=== PATIENT | female | born 1970 | race Caucasian/White ===

== ENCOUNTER 2022-07-21 11:32 | Emergency (ER) | payer BC ==
[2022-07-21] MEDS ORDERED: IBUPROFEN 400 MG TAB ONE (12:05)
--- NOTE | 2022-07-21 13:57 | EDPHYS ---
Physician Documentation [facility] Name: Leanna Delacruz Age: 51 yrs Sex: Female : 1970 Arrival Date: 07/21/2022 Time: 11:36 Bed 11 Private MD: ED Physician Kurtis Sanchez HPI: 07/21 11:50 This 51 yrs old Female presents to ER via Ambulatory with complaints of Fever, Cough, jmm Body Aches. 11:50 Onset: The symptoms/episode began/occurred gradually, 2 day(s) ago. Modifying factors: jmm there are no obvious modifying factors. Associated signs and symptoms: Pertinent positives: chills, cough, sore throat. It is unknown whether or not the patient has had similar symptoms in the past. This is a 51 year old female with a history of htn that presents to the ED with complaints of sore throat, body aches, cough, diarrhea beginning approx 2 days ago. Denies infectious exposure. Denies vomiting. . 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 - Social history:: Smoking status: Reported history of juuling and/or vaping. ROS: 11:50 Constitutional: Positive for body aches, fatigue. jmm 11:50 ENT: Positive for sore throat. 11:50 Respiratory: Positive for cough. 11:50 All other systems are negative. Exam: 11:50 Constitutional: This is a well developed, well nourished patient who is awake, alert, jmm and in no acute distress. Head/Face: atraumatic. Eyes: EOMI, no conjunctival erythema appreciated 11:50 Neck: Trachea midline, Supple Chest/axilla: Normal chest wall appearance and motion. Cardiovascular: Regular rate and rhythm. No edema appreciated Respiratory: Normal respirations, no respiratory distress appreciated Abdomen/GI: Non distended Back: Normal ROM Skin: General appearance color normal MS/ Extremity: Moves all extremities, no obvious deformities appreciated, no edema noted to the lower extremities Neuro: Awake and alert Psych: Behavior is normal, Mood is normal, Patient is cooperative and pleasant 11:50 ENT: Posterior pharynx: erythema, that is moderate. Vital Signs: 11:43 BP 122 / 84; Pulse 76; Resp 18; Temp 99.7; Pulse Ox 99% ; Weight 68.04 kg; Height 5 ft. kl 5 in. (165.10 cm); 13:30 Temp 98.2; kb3 14:29 BP 104 / 66; Pulse 81; Resp 20; Pulse Ox 99% ; Pain 3/10; kb3 11:43 Body Mass Index 24.96 (68.04 kg, 165.10 cm) kl MDM: 11:50 Patient medically screened. [facility] 13:55 Data reviewed: vital signs, nurses notes. Counseling: I had a detailed discussion with kenny the patient and/or guardian regarding: the historical points, exam findings, and any diagnostic results supporting the discharge/admit diagnosis, the need for outpatient follow up, to return to the emergency department if symptoms worsen or persist or if there are any questions or concerns that arise at home. 07/21 11:39 Order name: SARS-COV-2 RT PCR (Document "Date of Onset" if Symptomatic); Complete Time: [facility] 13:55 07/21 11:39 Order name: Strep; Complete Time: 12:37 [facility] 07/21 11:39 Order name: Influenza Screen (a \\T\\ B); Complete Time: 12:37 [facility] 07/21 12:37 Order name: Throat Culture EDMS Administered Medications: 12:09 Drug: Ibuprofen 400 mg Route: PO; kb3 13:00 Follow up: Response: No adverse reaction; Temperature is decreased kb3 Disposition: 15:53 PA/INFORMATION MANAGEMENT SPECIALIST's history reviewed, patient interviewed, and examined. I agree with assessment jr11 and care plan and confirm the diagnosis (es) above. Attestation: The patient's history, exam findings, diagnostics, and a summary of any interventions or procedures was reviewed in detail with Prem NAZARIO. Disposition Summary: 07/21/22 13:56 Discharge Ordered Location: Home kenny Condition: Stable veronica Diagnosis - Coronavirus infection, unspecified [facility] Followup: veronica - With: Private Physician - When: 2 - 3 days - Reason: Recheck today's complaints, Continuance of care, Re-evaluation by your physician Discharge Instructions: - Discharge Summary Sheet [facility] Forms: - Medication Reconciliation Form [facility] - Thank You Letter jmm - Antibiotic Education jm - Prescription Opioid Use [facility] Prescriptions: - albuterol sulfate 90 mcg/actuation Inhalation HFA aerosol inhaler - inhale 2 puff by INHALATION route every 4 hours; 1 Pump; Refills: 0, Product [facility] Selection Permitted Signatures: Dispatcher [employer] Fang Cabrera, Prem Barfield RN, PA PA jmm Rosillo, Jose, MD MD jr11 Jacquelyn Caldwell RN RN kb3
--- NOTE | 2022-07-21 13:57 | ER ---
Nurse's Notes [facility] Name: Leanna Delacruz Age: 51 yrs Sex: Female : 1970 Arrival Date: 07/21/2022 Time: 11:36 Bed 11 Private MD: Diagnosis: Coronavirus infection, unspecified Presentation: 07/21 11:43 Chief complaint: Patient states: 2 days of 101+ fevers with diarrhea, coughing. Coronavirus screen: Vaccine status: Patient reports being unvaccinated. Client denies travel out of the [place] in the last 14 days. Ebola Screen: Patient negative for fever greater than or equal to 101.5 degrees Fahrenheit, and additional compatible Ebola Virus Disease symptoms Patient denies exposure to infectious person. Patient denies travel to an Ebola-affected area in the 21 days before illness onset. Initial Sepsis Screen: Does the patient meet any 2 criteria? No. Patient's initial sepsis screen is negative. Does the patient have a suspected source of infection? No. Patient's initial sepsis screen is negative. Risk Assessment: Do you want to hurt yourself or someone else? Patient reports no desire to harm self or others. Onset of symptoms was July 19, 2022. 11:43 Method Of Arrival: Ambulatory kl 11:43 Acuity: KEV 3 kl Triage Assessment: 11:45 General: Appears in no apparent distress. uncomfortable, slender, well groomed, well kl developed, Behavior is calm, cooperative, appropriate for age. Pain: Denies pain. 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 - Social history:: Smoking status: Reported history of juuling and/or vaping. Screenin:05 Abuse screen: Denies threats or abuse. Denies injuries from another. Nutritional kb3 screening: No deficits noted. Tuberculosis screening: No symptoms or risk factors identified. Fall Risk None identified. Assessment: 12:05 General: Received care of pt from day shift RN. Pt reports cough, congestion, fever, kb3 diarrhea x2 days.. 12:05 Respiratory: Reports cough that is non-productive, dry, Breath sounds are clear kb3 bilaterally. GI: Reports diarrhea. Vital Signs: 11:43 BP 122 / 84; Pulse 76; Resp 18; Temp 99.7; Pulse Ox 99% ; Weight 68.04 kg; Height 5 ft. kl 5 in. (165.10 cm); 13:30 Temp 98.2; kb3 14:29 BP 104 / 66; Pulse 81; Resp 20; Pulse Ox 99% ; Pain 3/10; kb3 11:43 Body Mass Index 24.96 (68.04 kg, 165.10 cm) ED Course: 11:36 Patient arrived in ED. rg4 11:38 Prem Stokes PA is PHCP. [facility] 11:38 Kurtis Sanchez MD is Attending Physician. [facility] 11:45 Triage completed. 11:45 Arm band placed on right wrist. 12:04 Jacquelyn Caldwell, KRISTY is Primary Nurse. kb3 12:05 Patient has correct armband on for positive identification. Bed in low position. Call kb3 light in reach. Side rails up X 1. Warm blanket given. 12:05 No provider procedures requiring assistance completed. Patient did not have IV access kb3 during this emergency room visit. 12:13 Influenza Screen (a \\T\\ B) Sent. kb3 12:13 Strep Sent. kb3 12:13 SARS-COV-2 RT PCR (Document "Date of Onset" if Symptomatic) Sent. kb3 Administered Medications: 12:09 Drug: Ibuprofen 400 mg Route: PO; kb3 13:00 Follow up: Response: No adverse reaction; Temperature is decreased kb3 Medication: 12:05 VIS not applicable for this client. kb3 Outcome: 13:56 Discharge ordered by . veronica 14:30 Discharged to home ambulatory. kb3 14:30 Condition: stable 14:30 Discharge instructions given to patient, Instructed on discharge instructions, follow up and referral plans. medication usage, Demonstrated understanding of instructions, follow-up care, medications, Prescriptions given X 1. 14:31 Patient left the ED. kb3 Signatures: Fang Bennett RN RN Prem Stokes PA PA jmm Garcia, Rubi rg4 Jacquelyn Caldwell, RN RN kb3
[2022-07-22 17:58] VITALS: O2SAT 99
[2022-07-22 17:59] VITALS: TEMP 98.2
[2022-07-22 18:00] VITALS: BP 104/66
== END 2022-07-21 14:31 | disposition home or self-care (01) ==
LOC: ER 11:32
DX: U07.1 COVID-19 (principal); I10 Essential (primary) hypertension; Z88.0 Allergy status to penicillin; Z88.2 Allergy status to sulfonamides
CPT/HCPCS: 87070; 87081; 87804 ×2; 99283; U0003

== ENCOUNTER 2023-06-03 20:39 | Emergency (ER) | payer BC ==
[2023-06-03] MEDS ORDERED: TDAP (DIPHTH,PERTUSS(ACELL),TET VAC) 0.5 ML VIAL IMVAC ONE (21:55)
[2023-06-03 22:43] LABS: Absolute Lymphocytes (CBC) 3.1 K/uL (0.7-4.9); Hematocrit 37.6 % (36.0-45.0); Lymphocytes % 42.8 % (15.3-44.8); MCV 93.6 fL (80-100); Platelets 287 thou/uL (152-406); RBC Red Blood Cell Count 4.02 M/uL (3.86-4.86)
[2023-06-03 23:40] LABS: Protime INR 0.88
[2023-06-04 03:55] LABS: Hematocrit 35.3 % (36.0-45.0); Lymphocytes % 34.5 % (15.3-44.8); MCV 92.3 fL (80-100); MPV 7.6 fL (7.6-11.3); Platelets 275 thou/uL (152-406); RBC Red Blood Cell Count 3.83 M/uL (3.86-4.86)
[2023-06-04 04:00] LABS: Protime INR 0.88
--- NOTE | 2023-06-04 04:48 | ER ---
Nurse's Notes [facility] Name: Leanna Delacruz Age: 52 yrs Sex: Female : 1970 Arrival Date: 06/03/2023 Time: 20:39 Bed 10 Private MD: Diagnosis: Insect bite (nonvenomous) of lower leg Presentation: 06/03 21:10 Chief complaint: Patient states: walking through [place] noticed 2 puncture lopez on back kl of right calf concerned with snake bite area marked 20 minutes ago no growth in bruising. Coronavirus screen: Vaccine status: Patient reports being unvaccinated. Ebola Screen: Patient negative for fever greater than or equal to 101.5 degrees Fahrenheit, and additional compatible Ebola Virus Disease symptoms. Initial Sepsis Screen: Does the patient meet any 2 criteria? No. Patient's initial sepsis screen is negative. Does the patient have a suspected source of infection? No. Patient's initial sepsis screen is negative. Risk Assessment: Do you want to hurt yourself or someone else? Patient reports no desire to harm self or others. Onset of symptoms was June 03, 2023 at 19:30. 21:10 Method Of Arrival: Ambulatory kl 21:10 Acuity: KEV 4 kl Triage Assessment: 21:13 General: Appears in no apparent distress. comfortable, Behavior is calm, cooperative. kl Pain: Complains of pain in right calf. Historical: - Allergies: 21:13 PENICILLINS; kl 21:13 Sulfa (Sulfonamide Antibiotics); kl - PMHx: 21:13 Hypertensive disorder; kl - Immunization history:: Last tetanus immunization: > 10 years ago. - Social history:: Smoking status: Reported history of juuling and/or vaping. Screenin/13 00:56 [facility] ED Fall Risk Assessment (Adult) History of falling in the last 3 months, kl including since admission No falls in past 3 months (0 pts) Confusion or Disorientation No (0 pts) Intoxicated or Sedated No (0 pts) Impaired Gait No (0 pts) Mobility Assist Device Used No (0 pt) Altered Elimination No (0 pt) Score/Fall Risk Level 0 - 2 = Low Risk Oriented to surroundings, Maintained a safe environment. Abuse screen: Denies threats or abuse. Nutritional screening:. Tuberculosis screening: No symptoms or risk factors identified. Assessment: 06/03 21:54 General: Appears in no apparent distress. comfortable, well groomed, well developed, eb1 well nourished, Behavior is calm, cooperative, appropriate for age, Denies fever, feeling ill, fatigue, chills. Pain: Complains of pain in lateral aspect of right calf. Neuro: No deficits noted. Cardiovascular: No deficits noted. Respiratory: No deficits noted. GI: No deficits noted. No signs and/or symptoms were reported involving the gastrointestinal system. : No deficits noted. No signs and/or symptoms were reported regarding the genitourinary system. EENT: No deficits noted. No signs and/or symptoms were reported regarding the EENT system. 22:15 Reassessment: poison control notifies recommend 8 hour observation and coag Case Number kl [id number]. 23:14 Reassessment: No increase in bruising or swelling noted. 06/04 03:50 Reassessment: Patient appears in no apparent distress at this time. no increase in kl bruising or swelling to affected area Patient denies pain at this time. 05:11 Reassessment: Patient appears in no apparent distress at this time. Patient denies pain kl at this time. Patient states feeling better. Vital Signs: 06/03 21:10 BP 161 / 93; Pulse 67; Resp 18; Temp 98.4; Pulse Ox 99% on R/A; Height 5 ft. 5 in. ; kl Pain 3/10; 06/04 05:11 BP 141 / 74; Pulse 16; Resp 16; Temp 98(TE); Pulse Ox 98% on R/A; kl 06/03 21:10 Pain Scale: Adult ED Course: 06/03 20:44 Patient arrived in ED. jj6 21:02 Sandra López MD is Attending Physician. sd2 21:12 Triage completed. kl 22:11 PT-INR Sent. eb1 22:11 Ptt, Activated Sent. eb1 22:11 CBC with Diff Sent. eb1 22:41 Ptt, Activated Sent. eb1 22:41 PT-INR Sent. eb1 22:41 CBC with Diff Sent. eb1 23:07 Lab(s) recollected, by me, sent to lab. 06/04 00:56 No apparent distress. Resting quietly. Appears to be sleeping. 00:56 Bed in low position. Call light in reach. Side rails up X2. Provided Education on: liborio wound monitoring. 03:50 Ptt, Activated Sent. kl 03:50 PT-INR Sent. kl 03:50 CBC with Diff Sent. kl 05:11 No provider procedures requiring assistance completed. Patient did not have IV access kl during this emergency room visit. 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 eb1 Exp: 11/09/2023. Lot #: [id number]. } Route: IM; Site: left deltoid; Medication: 06/04 05:12 Vaccine Information Statement (VIS) provided today. Questions and/or concerns kl addressed. VIS edition date: June 07, 2021. Outcome: 04:47 Discharge ordered by . sd2 05:12 Discharged to home ambulatory. 05:12 Condition: stable 05:12 Discharge instructions given to patient, Instructed on discharge instructions, follow up and referral plans. Demonstrated understanding of instructions, follow-up care. 05:12 Patient left the ED. Signatures: Fang Bennett, RN Antonia Espinal RN RN eb1 Dyan Mackenzie Jennifer jj6 Dunlop, Stephanie, MD MD sd2 Corrections: (The following items were deleted from the chart) 06/03 23:40 22:11 FIBRINOGEN+COAG.LAB.BRZ drawn and sent. [facility] EDMS 23:40 22:41 FIBRINOGEN+COAG.LAB.BRZ drawn and sent. eb EDMS
--- NOTE | 2023-06-04 04:48 | EDPHYS ---
Physician Documentation [facility] Name: Leanna Delacruz Age: 52 yrs Sex: Female : 1970 Arrival Date: 06/03/2023 Time: 20:39 Bed 10 Private MD: ED Physician Sandra López HPI: 06/03 21:50 This 52 yrs old Female presents to ER via Ambulatory with complaints of POSSIBLE SNAKE sd2 BITE. 21:50 52-year-old female presents with chief complaint of possible snakebite. She reports she sd2 was walking through a [place] patch when she felt something on her left calf area. She reports that when she looked down she noticed 2 small puncture wounds to the area and then area initially was a purple color. It now appears to be bruised. The area was marked upon patient's arrival and it has been approximately 20 minutes with no significant change. She does have some slight skin burning to that area but has had no other systemic symptoms thus far.. Historical: - Allergies: 21:13 PENICILLINS; kl 21:13 Sulfa (Sulfonamide Antibiotics); kl - PMHx: 21:13 Hypertensive disorder; kl - Immunization history:: Last tetanus immunization: > 10 years ago. - Social history:: Smoking status: Reported history of juuling and/or vaping. ROS: 21:50 Constitutional: Negative for fever, chills, and weight loss, Eyes: Negative for injury, sd2 pain, redness, and discharge, Cardiovascular: Negative for chest pain, palpitations, and edema, Respiratory: Negative for shortness of breath, cough, wheezing. Abdomen/GI: Negative for abdominal pain, nausea, vomiting, diarrhea. MS/Extremity: Negative for injury and deformity, Skin: Positive for injury, rash, and discoloration, Neuro: Negative for headache, numbness and tingling. Exam: 21:50 Constitutional: This is a well developed, well nourished patient who is awake, alert, sd2 and in no acute distress. Head/Face: Normocephalic, atraumatic. Eyes: EOMI, normal conjunctiva bilaterally Chest/axilla: Normal chest wall appearance and motion. Nontender with no deformity. Cardiovascular: Regular rate and rhythm with a normal S1 and S2. No gallops, murmurs, or rubs. 2+ distal pulses. Respiratory: Lungs have equal breath sounds bilaterally, clear to auscultation and percussion. No rales, rhonchi or wheezes noted. No increased work of breathing, no retractions or nasal flaring. Abdomen/GI: Soft, non-tender, with normal bowel sounds. No guarding or rebound. No evidence of tenderness throughout. Skin: Warm, dry with normal turgor. 2 small puncture wounds noted to back of left calf with small area of surrounding ecchymosis still within circled off area marked on the leg. NO significant erythema, tenderness, induration or fluctuance. MS/ Extremity: Pulses equal, no cyanosis. Neurovascular intact. Full, normal range of motion. Ambulatory without difficulty. Psych: Awake, alert, with orientation to person, place and time. Behavior, mood, and affect are within normal limits. Vital Signs: 21:10 BP 161 / 93; Pulse 67; Resp 18; Temp 98.4; Pulse Ox 99% on R/A; Height 5 ft. 5 in. ; kl Pain 12/30; 06/04 05:11 BP 141 / 74; Pulse 16; Resp 16; Temp 98(TE); Pulse Ox 98% on R/A; kl 06/03 21:10 Pain Scale: Adult kl MDM: 06/03 21:42 Patient medically screened. sd2 21:50 Differential diagnosis: snake bite, cellulitis, abscess, spider bite, coagulopathy sd2 among others. Rabies Status: Rabies immunization is not indicated. Data reviewed: vital signs, nurses notes. Management of patient was discussed with the following: Sports Trainer: Poison Control recommends elevating the area, marking and measuring every 30 minutes, tetanus prophylaxis, no prophylactic abx and obs for 8h total. Will get a set of labs now including platelets, fibrinogen and coags and another set in 6 hours. Pt can be discharged if remains well at 8 hours total observation time.. I considered the following discharge prescriptions or medication management in the emergency department Medications were administered in the Emergency Department. See 04:45 Care significantly affected by the following chronic conditions: Hypertension. sd2 Counseling: I had a detailed discussion with the patient and/or guardian regarding: the historical points, exam findings, and any diagnostic results supporting the discharge/admit diagnosis, lab results, the need for outpatient follow up, to return to the emergency department if symptoms worsen or persist or if there are any questions or concerns that arise at home. ED course: Patient observed for over 8 hours with no change or evolution in symptoms or worsening of the bite area or radius of the area. The patient's labs did not have any significant changes on the recheck. Therefore, according to poison control's recommendations, the patient is able to be discharged home at this time. She is comfortable with plan for discharge and outpatient follow-up and verbalizes understanding of strict return precautions.. 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 eb1 Exp: 11/09/2023. Lot #: [id number]. } Route: IM; Site: left deltoid; Disposition Summary: 06/04/23 04:47 Discharge Ordered Location: Home sd2 Problem: new sd2 Symptoms: have improved sd2 Condition: Stable sd2 Diagnosis - Insect bite (nonvenomous) of lower leg sd2 Followup: sd2 - With: Private Physician - When: 2 - 3 days - Reason: Wound Recheck Discharge Instructions: - Discharge Summary Sheet sd2 - Snake Bite sd2 - Insect Bite, Adult sd2 Forms: - Medication Reconciliation Form sd2 - Thank You Letter sd2 - Antibiotic Education sd2 - Prescription Opioid Use sd2 - Patient Portal Instructions sd2 - Leadership Thank You Letter sd2 Signatures: Dispatcher [employer] Fang Cabrera RN RN kl Basinger, Emily, RN RN eb1 Sandra López MD MD sd2 Kristyn Sheldon mc5 Corrections: (The following items were deleted from the chart) 23:40 21:48 FIBRINOGEN+COAG.LAB.BRZ ordered. EDMS EDMS
[2023-06-04 05:17] VITALS: BP 141/74; TEMP 98; O2SAT 98
== END 2023-06-04 05:12 | disposition home or self-care (01) ==
LOC: ER 20:39
DX: S80.862A Insect bite (nonvenomous), left lower leg, initial encounter (principal); Z23 Encounter for immunization; Z88.0 Allergy status to penicillin; Z88.2 Allergy status to sulfonamides
CPT/HCPCS: 36415; 85025; 85610; 85730; 90471; 99284